=== PATIENT | female | born 1965 | race Caucasian/White ===

== ENCOUNTER 2017-05-29 17:44 | Emergency (ER) | payer OTHER ==
[2017-05-29 18:03] VITALS: BP 118/76
[2017-05-29] MEDS ORDERED: Ketorolac 60 MG/2 ML SDV IM ONE (18:24)
--- NOTE | 2017-05-29 18:44 | EDM.PDOC ---
ED HPI GENERAL MEDICAL PROBLEM - General Chief Complaint: Lower Extremity Injury/Pain Stated Complaint: PT HAS PAIN IN LT HIP Time Seen by Provider: 05/29/17 18:20 Source of Information: Reports: Patient, Family History Limitations: Reports: No Limitations - History of Present Illness INITIAL COMMENTS - FREE TEXT/NARRATIVE: History of present illness: [52-year-old female comes in complaining of pain in the left hip from sciatica. Patient has a known diagnosis of sciatica and has been being seen at [facility] where she's also been participating in physical therapy] Review of systems: As per history of present illness and below otherwise all systems reviewed and negative. Past medical history: As per history of present illness and as reviewed below otherwise noncontributory. Surgical history: As per history of present illness and as reviewed below otherwise noncontributory. Social history: No reported history of drug or alcohol abuse. Family history: As per history of present illness and as reviewed below otherwise noncontributory. Physical exam: HEENT: Atraumatic, normocephalic, pupils reactive, negative for conjunctival pallor or scleral icterus, mucous membranes moist, throat clear, neck supple, nontender, trachea midline. Lungs: Clear to auscultation, breath sounds equal bilaterally, chest nontender. Heart: S1S2, regular, negative for clicks, rubs, or JVD. Abdomen: Soft, nondistended, nontender. Negative for masses or hepatosplenomegaly. Negative for costovertebral tenderness. Pelvis: Stable nontender. Genitourinary: Deferred. Rectal: Deferred. Extremities: Atraumatic, negative for cords or calf pain. Neurovascular unremarkable. Neuro: Awake, alert, oriented. Cranial nerves II through XII unremarkable. Cerebellum unremarkable. Motor and sensory unremarkable throughout. Exam nonfocal. Global assessment is benign save subjective complaint as noted in history of present illness of sciatic pain to left hip. Patient indicates that it is radiating down her leg Reevaluation of patient after medication patient indicated that her pain was significantly better and requested some food. When told that we have little sandwiches and juice she indicated she was hydrated and that in the nurse told her she was sorry but that it would have to wait till she was discharged.. Upon going to room to discharge patient it was apparent that she had absconded Diagnostics: [] Therapeutics: [Norflex, Toradol] Impression: [Sciatic flare] Plan: [f/u with pcp] Definitive disposition and diagnosis as appropriate pending reevaluation and review of above. 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 (see below) Other Treatments SENIOR PRODUCT INTEGRITY ENGINEER: Xanax this am, 800 ibuprofen Left Hip Pain Score (Numeric/FACES): 10 - Related Data Allergies Allergy/AdvReac Type Severity Reaction Status Date / Time No Known Allergies Allergy Verified 05/29/17 18:03 Home Meds: Home Meds Allopurinol [Zyloprim] 100 mg PO DAILY 05/29/17 [History] Citalopram Hydrobromide [Celexa] 40 mg PO DAILY 05/29/17 [History] Levothyroxine [Levothroid] 137 mcg PO DAILY 05/29/17 [History] Past Medical History HEENT History: Reports: Other (See Below) Other HEENT History: wears glasses Gastrointestinal History: Reports: GERD Genitourinary History: Reports: Renal Calculus 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5 - Caffeine Use Caffeine Use: Reports: Coffee, Tea - Recreational Drug Use Recreational Drug Use: No Review of Systems - Review of Systems Review Of Systems: See Below (See history of present illness) ED EXAM, GENERAL - Physical Exam Exam: See Below (History of present illness) Course - Vital Signs Last Recorded V/S: Last Vital Signs Temp Pulse 114 H 05/29/17 17:56 Resp 16 05/29/17 17:56 BP 118/76 05/29/17 17:56 Pulse Ox 94 L 05/29/17 17:56 - Orders/Labs/Meds Orders: Active Orders 24 hr Category Date Time Status Orphenadrine [Norflex] Med 05/29/17 18:30 Active 60 mg IM Q12H Medication Orders Orphenadrine Citrate (Norflex) 60 mg IM Q12H [id number] Last Admin: 05/29/17 18:41 Dose: 60 mg Meds: Medications Generic Name Dose Route Start Last Admin Trade Name Freq PRN Reason Stop Dose Admin Orphenadrine Citrate 60 mg 05/29/17 18:30 05/29/17 18:41 Norflex IM 60 mg Q12H JAGRUTI Administration Discontinued Medications Generic Name Dose Route Start Last Admin Trade Name Freq PRN Reason Stop Dose Admin Ketorolac Tromethamine 60 mg 05/29/17 18:24 05/29/17 18:43 Toradol IM 05/29/17 18:25 60 mg ONETIME ONE Administration Departure - Departure Time of Disposition: 19:05 Disposition: Eloped 07 Condition: Good Clinical Impression: Sciatica - Discharge Information Referrals: PCP,None [Primary Care Provider] - Forms: ED Department Discharge - My Orders Last 24 Hours: My Active Orders 05/29/17 18:30 Orphenadrine [Norflex] 60 mg IM Q12H - Assessment/Plan Last 24 Hours: My Active Orders 05/29/17 18:30 Orphenadrine [Norflex] 60 mg IM Q12H
== END 2017-05-29 19:13 | disposition left against medical advice (07) ==
LOC: MW.ED 17:44
DX: M54.30 Sciatica, unspecified side (principal); K21.9 Gastro-esophageal reflux disease without esophagitis; E03.9 Hypothyroidism, unspecified; F41.9 Anxiety disorder, unspecified; Z87.442 Personal history of urinary calculi; Z79.899 Other long term (current) drug therapy; Z98.890 Other specified postprocedural states
CPT/HCPCS: 96372; 99283; J1885; J2360; 99282